=== PATIENT | female | born 1995 ===

== ENCOUNTER 2021-01-18 21:14 | Emergency (ER) | payer OTHER ==
[~2021-01-18] VITALS: Ht 177.8 cm; Wt 117.9 kg
[2021-01-18 22:52] LABS: Basophils # (auto) 0 10 ^3/uL (0-0.2); Basophils % (auto) 0.5 % (0.0-2.0); Eosinophils # (auto) 0 10 ^3/uL (0-0.8); Eosinophils % (auto) 0.5 % (0.0-7.0); Hematocrit 43.6 % (36.0-46.0); Hemoglobin 14.8 g/dL (12.2-16.2); Lymphocytes # (auto) 1.9 10 ^3/uL (0.4-5.4); Lymphocytes % (auto) 20.7 % (10.0-50.0); Mean Corpuscular Hemoglobin 30.5 pg (28.0-32.0); Mean Corpuscular Hgb Conc. 33.9 g/dL (32.0-36.0); Monocytes # (auto) 0.6 10 ^3/uL (0-1.3); Neutrophils # (auto) 6.8 10 ^3/uL (1.6-8.6); Neutrophils % (auto) 72.3 % (37.0-80.0); Red Blood Cells 4.85 10^6/uL (4.0-5.20); Red Cell Distribution Width 13.7 % (11.8-14.3); White Blood Cell 9.4 10^3/uL (4.4-10.8)
[2021-01-18 23:09] LABS: Albumin 3.9 g/dL (3.4-5.0); Anion Gap 6 (5-15); Blood Urea Nitrogen 13 mg/dL (7-18); Carbon Dioxide 26 mmol/L (21-32); Chloride 108 mmol/L (98-107); Glucose 96 mg/dL (74-106); Potassium 3.9 mmol/L (3.5-5.1); Sodium 140 mmol/L (136-145)
[2021-01-18 23:16] LABS: Alanine Aminotransferase 18 U/L (13-56); Alkaline Phosphatase 89 U/L (45-117); Aspartate Aminotransferase 10 U/L (15-37); BUN/Creatinine Ratio 18.1; Bilirubin, Total 0.4 mg/dL (0.2-1.0); GFR African American 128 mL/min; GFR Non-African American 106 mL/min; Total Protein 8.3 g/dL (6.4-8.2)
[2021-01-19 02:12] VITALS: BP 127/82
[2021-01-19] MEDS ORDERED: ALPRAZolam 0.5 MG TAB PO ONE (03:45)
[2021-01-19] MEDS ORDERED: ALPRAZolam 0.5 MG TAB ONE ×2 (03:52→03:53)
== END 2021-01-19 04:10 | disposition home or self-care (01) ==
LOC: ER 21:14
DX: F41.9 Anxiety disorder, unspecified (principal); F41.0 Panic disorder [episodic paroxysmal anxiety]
CPT/HCPCS: 36415; 80053; 84484; 85025; 93005